=== PATIENT | female | born 1985 | race Two or more races ===

== ENCOUNTER 2017-10-08 09:36 | Emergency (ER) | payer MEDICAID ==
[~2017-10-08] VITALS: Ht 160 cm; Wt 104.3 kg
[2017-10-08 09:58] VITALS: BP 148/89
[2017-10-08] MEDS ORDERED: IBUPROFEN600 MG ORAL (10:53)
--- NOTE | 2017-10-08 11:04 | Diagnostic Imaging Report ---
RIGHT ANKLE, Views INDICATION: Pain COMPARISON: None FINDINGS: 3 views of the right ankle are obtained. Diffuse soft tissue swelling. Os trigonum, with irregularity of ossicle, correlation can be obtained with CT to exclude fracture. Bone mineralization is within normal limits. Joint spaces are preserved. No radio-opaque foreign bodies. IMPRESSION: Diffuse soft tissue swelling. Os trigonum, with irregularity of ossicle, correlation can be obtained with CT to exclude fracture.
[2017-10-08 11:11] VITALS: BP 135/81
--- NOTE | 2017-10-08 17:05 | Emergency Room Report ---
History of Present Illness General Chief Complaint: Lower Extremity Injury Source: Patient Present Illness HPI Patient is a 32-year-old female presented after increased right ankle pain. Patient reportedly stepped into a small defect in the pavement. She reports having injured her right ankle. She reported feeling a pop. She denied other locations of injury. She denies any numbness or weakness. The patient was noted to have difficulty with ambulation. Allergies: Coded Allergies: PENICILLINS (Verified Allergy, Severe, Hives, 10/08/17) Patient History Past Medical History: see triage record Last Menstrual Period: now Now: No Reviewed Nursing Documentation: PMH: Agreed; PSxH: Agreed Nursing Documentation-PMH Past Medical History: No History, Except For Hx Hypertension: Yes Review of Systems All Other Systems: negative except mentioned in HPI Physical Exam Vital Signs Date Time Temp Pulse Resp B/P (MAP) Pulse Ox O2 Delivery O2 Flow Rate FiO2 10/08/17 09:52 98.5 74 18 148/89 98 98.4 10/08/17 09:58 Room Air General Appearance: well appearing, no apparent distress, alert, GCS 15, obese Head: normocephalic, atraumatic ENT: hearing grossly normal, normal voice Neck: full range of motion, supple Respiratory: no respiratory distress, speaking full sentences Musculoskeletal: normal inspection, swelling - lateral malleolus Neurologic: normal gait Psychiatric: mood/affect normal Skin: no rash Medical Decision Making Diagnostic Impression: Primary Impression: Right ankle sprain ER Course Patient presented for ankle pain. Differential diagnosis included was not limited to sprain, fracture, dislocation, cellulitis, vascular insufficiency. X -ray imaging of the ankle was ordered. The patient was placed in a splint. And given crutches. The patient is advised to follow up with primary care doctor in 1-2 days. Patient is advised to return if any worsening condition or if any changes in status that are concerning. This report is dictated with [email or web address] variety saw operator software which may occasionally lead to discrepancies related to use of this software. Last Vital Signs Date Time Temp Pulse Resp B/P (MAP) Pulse Ox O2 Delivery O2 Flow Rate FiO2 10/08/17 11:11 98.4 82 15 135/81 98 Room Air 98.4 Status: improved Disposition: HOME, SELF-CARE Condition: Stable Scripts Ibuprofen* (MOTRIN*) 600 Mg Tablet 600 MG ORAL Q8H PRN for For Pain, #30 TAB 0 Refills Prov: Ross Frazier MD 10/08/17 Patient Instructions: Ankle Sprain Ross Frazier MD Oct 08, 2017 17:05
== END 2017-10-08 11:11 | disposition home or self-care (01) ==
LOC: EMR 10:25
DX: S93.401A Sprain of unspecified ligament of right ankle, initial encounter (principal); I10 Essential (primary) hypertension; Z88.0 Allergy status to penicillin; X50.1XXA Overexertion from prolonged static or awkward postures, initial encounter; Y92.9 Unspecified place or not applicable
CPT/HCPCS: 99283